=== PATIENT | female | born 1940 | race Caucasian/White ===

== ENCOUNTER 2018-04-07 10:52 | Inpatient (IN) | payer MEDICARE ==
[2018-04-07 11:30] LABS: ABS Basophils 0.1 10^3/ul (0-0.2); ABS Eosinophils 0 10^3/ul (0-0.6); ABS Lymphocytes 1.2 10^3/ul (1.0-4.8); ABS Neutrophils 7.9 10^3/ul (1.5-7.7); ABS Nucleated RBC 0 10^3/ul; Eosinophil % 0 % (0-6); Hematocrit 41 % (35-47); Hemoglobin 13.7 g/dl (12.0-16.0); Lymphocyte % 11.8 % (25-47); Mean Corpuscular HGB Conc 34 g/dl (31-36); Mean Corpuscular Hemoglobin 26 pg (27-31); Mean Corpuscular Volume 78 fL (80-97); Mean Platelet Volume 7.3 um3 (7.4-10.4); Nucleated Red Blood Cells % 0; Platelet Count 188 10^3/ul (150-450); Red Blood Count 5.26 10^6/ul (4.0-5.4); Red Cell Distribution Width 17 % (10.5-15); White Blood Count 10.1 10^3/ul (3.5-10.8)
[2018-04-07 11:46] LABS: EGFR Non-African American 64.2 (>60)
[2018-04-07] MEDS ORDERED: NS 0.9% 1000 ML* 1,000 ML IV ONE (12:07)
--- NOTE | 2018-04-07 12:11 | RAD ---
HISTORY: Weakness, failure to thrive COMPARISONS: None VIEWS: 1: frontal portable view of the chest at 11:30 AM FINDINGS: LINES AND TUBES: None. CARDIOMEDIASTINAL SILHOUETTE: The cardiomediastinal silhouette is normal for portable technique. PLEURA: The costophrenic angles are sharp. No pleural abnormalities are noted. LUNG PARENCHYMA: There is hyperinflation. ABDOMEN: The upper abdomen is clear. There is no subphrenic gas. BONES AND SOFT TISSUES: Degenerative changes are noted along the spine. IMPRESSION: HYPERINFLATION. NO ACTIVE CARDIOPULMONARY DISEASE.
[2018-04-07] MEDS ORDERED: PROCHLORPERAZINE INJ 5 MG/ML 2 ML VIAL IV PRN (14:13)
--- NOTE | 2018-04-07 14:55 | ED ---
Jesica Mancilla Elizabeth, scribed for Nima Mccord MD on 04/07/18 at 1115 . Complex/Multi-Sys Presentation - HPI Summary HPI Summary: This patient is a 78 year old F presenting to [facility] via EMS with a chief complaint of decreased appetite and weight loss, per EMS report. Symptoms aggravated by nothing. Symptoms alleviated by nothing. Patient reports that she was brought in because her son was concerned about her but she denies knowing what he was concerned about. Patient reports decreased oral intake. Patient denies inability to urinate, constipation, or shortness of breath. Patient denies any hx of medical problems. Patient lives at home with her and her son. 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 - History Of Current Complaint Time Seen by Provider: 04/07/18 11:01 Hx Obtained From: Patient, EMS Onset/Duration: Still Present Timing: Constant Severity Currently: Mild Severity Initially: Mild Aggravating Factor(s): nothing Alleviating Factor(s): nothing Associated Signs And Symptoms: Positive: Decreased Oral Intake. Negative: SOB - Allergies/Home Medications Allergies/Adverse Reactions: Allergies Allergy/AdvReac Type Severity Reaction Status Date / Time No Known Allergies Allergy Verified 04/07/18 11:07 Home Medications: Home Medications NK [No Home Medications Reported] 04/07/18 [History Confirmed 04/07/18] PMH/Surg Hx/FS Hx/Imm Hx Endocrine/Hematology History: Denies: Hx Diabetes Respiratory History: Denies: Hx Chronic Obstructive Pulmonary Disease (COPD) Opthamlomology History: Denies: Hx Legally Blind Infectious Disease History: No Infectious Disease History: Denies: Traveled Outside the [place] in Last 30 Days - Family History Known Family History: Positive: Unknown - family hx unable to be obtained from patient - Social History Alcohol Use: None Substance Use Type: Reports: None Smoking Status (MU): Former Smoker Review of Systems Negative: Shortness Of Breath Gastrointestinal: Other - decreased oral intake Negative: incontinence Negative: Headache All Other Systems Reviewed And Are Negative: Yes Physical Exam - Summary Physical Exam Summary: Appearance: The patient is well-nourished in no acute distress and in no acute pain. Skin: The skin is warm and dry and skin color reflects adequate perfusion. The skin tents. HEENT: The head is normocephalic and atraumatic. The pupils are equal and reactive. The conjunctivae are clear and without drainage. Nares are patent and without drainage. Mouth reveals dry membranes and the throat is without erythema and exudate. The external ears are intact. The ear canals are patent and without drainage. The tympanic membranes are intact. Neck: the neck is supple with full range of motion and non-tender. There are no carotid bruits. There is no neck vein distension. Respiratory: Chest is non-tender. Lungs are clear to auscultation and breath sounds are symmetrical and equal. Cardiovascular: Heart is regular rate and rhythm. There is no murmur or rub auscultated. There is no peripheral edema and pulses are symmetrical and equal. Abdomen: The abdomen is soft and non-tender. There are normal bowel sounds heard in all four quadrants and there is no organomegaly palpated. Musculoskeletal: There is no back tenderness noted. Extremities are non-tender with full range of motion. There is good capillary refill. There is no peripheral edema or calf tenderness elicited. Neurological: Patient is alert and oriented to person, place and time. The patient has symmetrical motor strength in all four extremities. Cranial nerves are grossly intact. Deep tendon reflexes are symmetrical and equal in all four extremities. Psychiatric: The patient has an appropriate affect and does not exhibit any anxiety or depression. Triage Information Reviewed: Yes Vital Signs On Initial Exam: Initial Vitals Temp Pulse Resp BP Pulse Ox 99.3 F 95 16 160/82 97 04/07/18 11:01 04/07/18 11:01 04/07/18 11:01 04/07/18 11:01 04/07/18 11:01 Vital Signs Reviewed: Yes Diagnostics - Vital Signs Vital Signs Temp Pulse Resp BP Pulse Ox 04/07/18 11:01 99.3 F 95 16 160/82 97 - Laboratory Lab Results: Lab Results 04/07/18 04/07/18 04/07/18 Range/Units 11:23 11:23 11:23 WBC 10.1 (3.5-10.8) 10^3/ul RBC 5.26 (4.0-5.4) 10^6/ul Hgb 13.7 (12.0-16.0) g/dl Hct 41 (35-47) % MCV 78 L (80-97) fL MCH 26 L (27-31) pg MCHC 34 (31-36) g/dl RDW 17 H (10.5-15) % Plt Count 188 (150-450) 10^3/ul MPV 7.3 L (7.4-10.4) um3 Neut % (Auto) 77.8 (38-83) % Lymph % (Auto) 11.8 L (25-47) % [place] % (Auto) 9.8 H (0-7) % Eos % (Auto) 0 (0-6) % Baso % (Auto) 0.6 (0-2) % Absolute Neuts (auto) 7.9 H (1.5-7.7) 10^3/ul Absolute Lymphs (auto) 1.2 (1.0-4.8) 10^3/ul Absolute Monos (auto) 1.0 H (0-0.8) 10^3/ul Absolute Eos (auto) 0 (0-0.6) 10^3/ul Absolute Basos (auto) 0.1 (0-0.2) 10^3/ul Absolute Nucleated RBC 0 10^3/ul Nucleated RBC % 0 Sodium 136 L (139-145) mmol/L Potassium 3.6 (3.5-5.0) mmol/L Chloride 105 (101-111) mmol/L Carbon Dioxide 25 (22-32) mmol/L Anion Gap 6 (2-11) mmol/L BUN 26 H (6-24) mg/dL Creatinine 0.86 (0.51-0.95) mg/dL Est GFR ( Amer) 82.5 (>60) Est GFR (Non-Af Amer) 64.2 (>60) BUN/Creatinine Ratio 30.2 H (8-20) Glucose 136 H (70-100) mg/dL Lactic Acid 1.0 (0.5-2.0) mmol/L Calcium 10.4 H (8.6-10.3) mg/dL Magnesium 2.2 (1.9-2.7) mg/dL Total Bilirubin 1.50 H (0.2-1.0) mg/dL AST 52 H (13-39) U/L ALT 21 (7-52) U/L Alkaline Phosphatase 100 (34-104) U/L Troponin I 0.02 (<0.04) ng/mL C-Reactive Protein 133.26 H (< 5.00) mg/L Total Protein 7.3 (6.4-8.9) g/dL Albumin 3.2 (3.2-5.2) g/dL Globulin 4.1 H (2-4) g/dL Albumin/Globulin Ratio 0.8 L (1-3) TSH 1.03 (0.34-5.60) mcIU/mL Result Diagrams: 04/07/18 11:23 04/07/18 11:23 Lab Statement: Any lab studies that have been ordered have been reviewed, and results considered in the medical decision making process. - Radiology CXR Xray Interpretation: No Acute Changes - IMPRESSION: HYPERINFLATION. NO ACTIVE CARDIOPULMONARY DISEASE. Dr. Mccord has reviewed this report Radiology Interpretation Completed By: Radiologist - EKG 11:14 Cardiac Rate: NL - at 76 BPM EKG Rhythm: Sinus Rhythm EKG Interpretation: NSR with PSVCs Re-Evaluation - Re-Evaluation 1st re-eval Re-Evaluation Time: 12:57 Change: Improved - Discussed course of treatment with patient and patient's family. Comment: Discussed course of tx with patient and patient's family Complex Multi-Symp Course/Dx Course Of Treatment: Ms. Davenport has been getting weaker and losing weight for many weeks. Today it got to the point that she couldn't get off the toilet and her son called EMS. She has no specific C/O but was clincally dehydrated and a bit cachectic. Her labs were reasonable with an elevated BUN/creat. I'm not sure what the diagnosis ultimately will be but she is unable to get up and walk out of the department. The hospitalist service is admitting her. - Diagnoses Provider Diagnoses: Weakness - Physician Notifications Discussed Care Of Patient With: Nora Justin Time Discussed With Above Provider: 13:15 Instructed by Provider To: Admit As Inpatient Discharge - Sign-Out/Discharge Documenting (check all that apply): Discharge/Admit/Transfer - Discharge Plan Condition: Stable Disposition: ADMITTED TO [facility] Referrals: No Primary Care Phys,NOPCP [Primary Care Provider] - - Billing Disposition and Condition Condition: STABLE Disposition: [facility] The documentation as recorded by the Jesica farley Elizabeth accurately reflects the service I personally performed and the decisions made by , Nima Mccord MD.
[2018-04-07] MEDS ORDERED: Iohexol 300* (CONTRAST) 10 ML SDV IV ONE (14:57)
--- NOTE | 2018-04-07 15:03 | RAD ---
HISTORY: Weakness, weight loss, poor appetite COMPARISONS: None TECHNIQUE: Multiple contiguous axial CT scans were obtained of the head without intravenous contrast. FINDINGS: HEMORRHAGE/INFARCT: There is no hemorrhage or acute infarct. MASSES/SHIFT: There is no mass or shift. EXTRA-AXIAL SPACES: There are no extra-axial fluid collections. SULCI AND VENTRICLES: The sulci and ventricles are normal in size and position for the patient's stated age. CEREBRUM: There is hypoattenuation of the periventricular and subcortical white matter. BRAINSTEM: There are no focal parenchymal abnormalities. CEREBELLUM: There are no focal parenchymal abnormalities. VESSELS: The vessels are grossly normal. PARANASAL SINUSES: The paranasal sinuses are clear. ORBITS: The orbits are unremarkable. BONES AND SOFT TISSUE: No bone or soft tissue abnormalities are noted. OTHER: None IMPRESSION: NO ACUTE INTRACRANIAL PATHOLOGY. CHRONIC SMALL VESSEL ISCHEMIC CHANGES.
[2018-04-07] MEDS: NS 0.9% 1000 ML* 1,000 ML IV SCH (16:31)
[2018-04-07] MEDS: Acetaminophen TAB* 325 MG PO PRN (16:31)
[2018-04-07] MEDS: cefTRIAXone(*) 1 GM in NS 0.9% 50 ML* 50 ML IVPB SCH (16:40)
--- NOTE | 2018-04-07 17:42 | HP ---
CC: Dr. Nuris Angulo. * HISTORY AND PHYSICAL: DATE OF ADMISSION: 04/07/18 TIME OF EVALUATION: 1:40 p.m. PRIMARY CARE PROVIDER: Dr. Nuris Angulo. CHIEF COMPLAINT: "She is weak" as per son. HISTORY OF PRESENT ILLNESS: Mrs. Davenport is a 78-year-old lady with limited contact with the health system who was brought in to the emergency room by EMS due to progressive weakness. The patient states she does not want to be admitted and is very reluctant to give me information. So, most of the history is obtained from her son, Josh Davenport, who is present at bedside. The son states that the patient has had progressive weakness and weight loss for years, he is unable to pinpoint for how long, but he states that over the past year "things got really worse." He estimates that his mother has lost approximately 100 pounds unintentionally and she has become progressively weaker to the point that today he woke up around 6:30 and she was in the bathroom. An hour later, she was still there sitting on the toilet and could not stand up, so he called EMS who brought her to the emergency room for further evaluation. The patient denies chest pain, nausea, vomiting, diarrhea, urinary complaints, although she later on reported that she does have some difficulty urinating. 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 Initially, my impression was that the patient had not tried to walk, but later on the emergency room nurse clarified that they had tried to walk her around and she was unable to stand up and the nurse felt that was very risky to try to do it again as she felt the patient was at very high risk for falls. When asked how she would get out of the emergency room, the patient stated that she was planning to walk out, but when reminded that she had not been able to walk earlier, she would just repeat "I will find a way." Even after her son told her that he would not be taking her home, she continued to insist that she did not want to be admitted, but could not verbalize plan to get out of the hospital and return home. The patient states that she never had the colonoscopy. Last mammogram was more than 10 years ago. PAST MEDICAL HISTORY: None, but the patient has limited contact with the health system, with last visit to her primary care provider more than 10 years ago. MEDICATION LIST: None. ALLERGIES: No known drug allergies. FAMILY HISTORY: Her father of a lung cancer and he was a heavy smoker. Her mother of heart disease and she was also a heavy smoker. Her son is not aware of any other diseases in the family. SOCIAL HISTORY: She quit smoking more than 40 years ago when she had her last baby. No alcohol intake, sometimes some wine occasionally but the son states that not even that. Surrogate decision maker is her son, Josh Davenport; phone number is [phone]. REVIEW OF SYSTEMS: Limited due to the fact that the patient is uncooperative, but all the pertinent negative and positive findings are in the HPI. PHYSICAL EXAMINATION GENERAL: The patient is an elderly lady with disheveled appearance and she appears to have lost significant amount of weight. She is lying in the ED stretch, in no acute distress. VITAL SIGNS: Temperature 98.0, heart rate is 91, respiratory rate is 20, oxygen saturation 96% on room air, blood pressure is 172/96. HEENT: Pupils are equal. Moist mucous membranes. CHEST: Breath sounds present bilaterally. No added sounds. CVS: Normal S1 and S2. Regular rate and rhythm. Tachycardic. ABDOMEN: Soft, nontender, and nondistended. Bowel sounds present. EXTREMITIES: There is trace bilateral lower extremity edema. NEUROLOGIC: She is alert, awake, and oriented x3. Able to move all 4 extremities. SKIN: The patient has telangiectasias on her face, hands. LABORATORY AND IMAGING DATA: The patient had a CBC that showed WBC of 10, hemoglobin of 13.7, hematocrit of 41 with MCV of 78, MCH of 26, platelet count of 188 with 77% neutrophils. Chemistry showed a sodium of 136, potassium 3.6, chloride of 105, bicarbonate 25, BUN of 26, creatinine of 0.86, glucose 136, lactic acid of 1. Calcium is 10.4, magnesium is 2.2. Total bilirubin is 1.5, AST is 52, ALT is 21. Troponin is 0.02. CRP is 133.2. TSH is 1.03. Chest x-ray showed hyperinflation, but no active cardiopulmonary disease. EKG showed sinus rhythm at 76 beats per minute with supraventricular bigeminy. No prior EKGs to compare. ASSESSMENT AND PLAN: Mrs. Davenport is a 78-year-old lady with no significant past medical history, but limited contact with the health system, who was brought into the emergency room by EMS due to progressive weakness and weight loss. 1. Weakness/weight loss. I suspect the patient may have an underlying malignancy considering her elevated CRP in clinical presentation. Unfortunately , my physical examination was limited due to the patient's lack of cooperation. I am going to check CT of the brain, chest, abdomen, and pelvis to look for any primary lesions. She will be seen by Physical Therapy. I am also going to check a serum and urine protein electrophoresis considering her mild hypercalcemia. 2. Capacity. It is my opinion that the patient lacks capacity to sign out against medical advice at this time as she appears to have some memory issues and was not able to verbalize a safe discharge plan. When asked how she should leave the hospital since she is unable to walk, the patient went into nonsensical reasoning that she could not walk because she had been in the emergency room for a long time. When I brought to her attention that she would sleep at least 8 hours lying in her bed and she should be able to get up in the morning, she just looked at me and was not able to give me any other answer. When I asked if she thought this was the safe discharge, she would just tell me "leave me alone." Since she is unable to show me that she has insight into her condition and she has a safe plan in place, I believe she does not have the capacity to leave at this time and mental health evaluation was also requested. 3. DVT prophylaxis. The patient has a score of 3 on a DVT Prophylaxis Risk Assessment Guide and she will be started on subcutaneous heparin. 4. Code status is full. TIME SPENT: Approximately 50 minutes was spent with the patient and family interview, medical records review, physical examination to complete this admission, more than half of this time was spent [id number] with the patient and coordination of care. [id number]/CPS #: [id number] PERRY
--- NOTE | 2018-04-07 17:56 | RAD ---
HISTORY: Weakness, cachexia, COMPARISONS: None TECHNIQUE: Multiple contiguous axial CT scans were obtained of the chest, abdomen, and pelvis after the administration of intravenous contrast. Coronal and sagittal multiplanar reformations are submitted for review.. Oral contrast was administered. Delayed images were obtained through the abdomen and pelvis. FINDINGS: CHEST NECK AND THYROID: There is a 1.1 cm left thyroid nodule CHEST WALL: There is no lower cervical, axillary, or supraclavicular lymphadenopathy by size criteria. HEART AND PERICARDIUM: The heart is unremarkable. AORTA AND PULMONARY VASCULATURE: There is calcification of the thoracic aorta. The pulmonary vasculature is unremarkable. MEDIASTINUM: There is no mediastinal lymphadenopathy by size criteria. SEEMA: There is no hilar lymphadenopathy by size criteria. AIRWAY AND ESOPHAGUS: The airway is unremarkable, without endobronchial filling defect. The esophagus is grossly normal. LUNG PARENCHYMA: The lungs are clear. PLEURA: No pleural abnormalities are noted. BONES AND SOFT TISSUES: Degenerative changes noted of the spine. ABDOMEN/PELVIS: LIVER: There are small low-attenuation lesions of the liver that are too small to definitively characterize. BILE DUCTS: There is no intrahepatic or extrahepatic biliary dilatation. GALLBLADDER: Gallstones are noted. There is a phrygian cap. PANCREAS: The pancreas is normal, without mass or ductal dilatation. SPLEEN: Normal in size and appearance. UPPER GI TRACT: Evaluation of the gastrointestinal tract is limited by incomplete gastric distention. The upper GI tract is unremarkable. SMALL BOWEL & MESENTERY: The small bowel is normal in contour, course, and caliber. There is no obstruction or dilatation. COLON: The colon is normal in contour, course, caliber. There is no pericolonic inflammatory change. ADRENALS: Normal bilaterally. KIDNEYS: There is moderate left and moderate to severe right hydronephrosis and hydroureter. BLADDER: The bladder is enlarged with multiple diverticula. There is diffuse wall thickening. PELVIC ORGANS: The uterus and adnexa are grossly normal for technique. AORTA: There is calcific atherosclerotic disease of the abdominal aorta and its branches, without aneurysmal dilatation IVC: Unremarkable LYMPH NODES: There is no lymphadenopathy by size criteria. ABDOMINAL WALL: There is no evidence for abdominal wall hernia. BONES AND SOFT TISSUES: Degenerative changes are noted of the spine OTHER: None IMPRESSION: 1. THERE IS BILATERAL HYDRONEPHROSIS WITH AN ENLARGED THICK-WALLED BLADDER WITH MULTIPLE DIVERTICULA. THIS MAY INDICATE A NEUROGENIC BLADDER VERSUS BLADDER OUTLET OBSTRUCTION. 2. ATHEROSCLEROSIS. 3. CHOLELITHIASIS. 4. THERE ARE LOW-ATTENUATION HEPATIC PARENCHYMAL LESIONS. THESE ARE TOO SMALL TO DEFINITIVELY CHARACTERIZE BUT STATISTICALLY MOST LIKELY REPRESENT SMALL CYSTS VERSUS HEMANGIOMAS. 5. 1.1 CM THYROID NODULE. 6. NO ACUTE CT PATHOLOGY OF THE CHEST.
--- NOTE | 2018-04-07 20:37 | PN ---
Progress Note - Progress Note Date of Service: 04/07/18 Note: Paged for urinary retention. Bladder scan >[address] scan shows b/l hydro and question of neurogenic bladder vs obstruction. Will place ram catheter based on these findings.
[2018-04-07] MEDS: Heparin VIAL(*) 5000 UNITS/ML VIAL (FIVE THOUSAND) SUBCUT SCH (21:25)
[2018-04-08] MEDS: NS 0.9% 1000 ML* 1,000 ML IV SCH ×2 (03:41→14:10)
[2018-04-08] MEDS: Heparin VIAL(*) 5000 UNITS/ML VIAL (FIVE THOUSAND) SUBCUT SCH ×3 (05:06→21:22)
[2018-04-08 07:16] LABS: Urine Appearance Turbid; Urine Blood 3+ (Negative); Urine Color Yellow; Urine Ketones Trace (Negative); Urine Protein 2+(100 mg/dL) (Negative); Urine Specific Gravity 1.029 (1.010-1.030); Urine Urobilinogen Negative (Negative)
[2018-04-08] MEDS: Acetaminophen TAB* 325 MG PO PRN (08:07)
--- NOTE | 2018-04-08 14:19 | CONSULT ---
Consult Consult: Consult for Medical Decision Making Capacity: S: Psychiatry is asked to evaluate capacity in this 78 y.o. , white female with not much documented medical or psychiatric history, who is currently admitted to the Hospitalist service secondary to progressive muscle weakness and concerns for cognitive impairment, who is refusing medically indicated evaluation and treatment related to her decrease in health and functioning. I spoke with the admitting clinician, Dr. Nora Singer, who reported that the patient was brought to the hospital by her son, who called 911 after not being able to lift his mother off the commode in the home that they share in [place], [place]. He further reported to ED staff that she had experienced a rapid weight loss over the past year of what he estimated to be 100 lbs. The patient was dismissive of her son's concerns and demanding discharge back home, insisting that she can take care of herself. ED staff attempted to have the patient ambulate but she was unable to do so without assistance. The patient could not give a rationale safety plan to mitigate these concerns and she was admitted. The indicated treatment is workup for the etiology of weight loss and there is some concern for possible malignancy. On exam the patient is cooperative but remains dismissive. She is unaware of what the primary team is suggesting and still insists that she be sent home, where she is the main caregiver for her aging, wheelchair bound . When asked about potential risks of refusing further workup and treatment, she cannot name any. Separately in the hallway I spoke with her daughter, Nivia Rios, who reports that the patient's memory is decreasing, as evidenced by her asking the same questions repetitively and not registering the answers in a meaningful way. The patient's brother, Kendall Mittal, corroborates this account. O: the patient is an extremely slender, aging white female who is laying upward in a bed, dressed in hospital gown; fair grooming; polite but somewhat annoyed; irritable affect; denies SI or HI; poor insight and impaired judgment; scores 22 /30 on MMSE, missing points for day, facility, county, immediate and delayed recall A/P: Capacity: the patient lacks capacity to refuse further hospitalization. She is unable to articulate/apprehend the risks of declining medically indicated treatment and she shows significant reductions in her cognitive functioning, as corroborated by multiple family accounts. Psychiatry is singing off. Please reconsult in the event of any significant changes in the patient's presentation.
[2018-04-08] MEDS: cefTRIAXone(*) 1 GM in NS 0.9% 50 ML* 50 ML IVPB SCH (15:39)
--- NOTE | 2018-04-08 17:24 | PN ---
Subjective Date of Service: 04/08/18 Interval History: Pt stated that she has lost 20 lbs in 5 yrs, but her daughter noted 40 lbs in 6 months. Pt denies problems with urination, or BM's. Denies abd pain, recent fevers. Not sure what happened when she was evaluated by PT today. Pt is seen with daughter and son in the room Objective Active Medications: Acetaminophen (Tylenol Tab*) 650 mg PO Q6H PRN PRN Reason: pain/fever Last Admin: 04/08/18 08:07 Dose: 650 mg Heparin Sodium (Porcine) (Heparin Vial(*)) 5,000 units SUBCUT Q8HR [facility] Last Admin: 04/08/18 14:10 Dose: 5,000 units Sodium Chloride (Ns 0.9% 1000 Ml*) 1,000 mls @ 100 mls/hr IV .ENTER RATE [facility] Last Admin: 04/08/18 14:10 Dose: 100 mls/hr Ceftriaxone Sodium 1 gm/ (Sodium Chloride) 50 mls @ 200 mls/hr IVPB Q24H [facility] Last Admin: 04/08/18 15:39 Dose: 200 mls/hr Prochlorperazine Edisylate (Compazine Inj*) 5 mg IV Q6H PRN PRN Reason: NAUSEA/VOMITING Vital Signs - 8 hr 04/08/18 04/08/18 10:15 11:17 Temperature 98.8 F 99.5 F Pulse Rate 63 Respiratory 20 Rate Blood Pressure 102/47 (mmHg) O2 Sat by Pulse 97 Oximetry Oxygen Devices in Use Now: None Appearance: 78 yo F in nAD, AAOx3, poor historian Eyes: No Scleral Icterus, PERRLA Ears/Nose/Mouth/Throat: NL Teeth, Lips, Gums, Mucous Membranes Moist Neck: NL Appearance and Movements; NL JVP, Trachea Midline Respiratory: Symmetrical Chest Expansion and Respiratory Effort, Clear to Auscultation Cardiovascular: NL Sounds; No Murmurs; No JVD, No Edema Abdominal: NL Sounds; No Tenderness; No Distention, No Hepatosplenomegaly Lymphatic: No Cervical Adenopathy Extremities: No Edema, No Clubbing, Cyanosis Skin: No Rash or Ulcers, No Nodules or Sclerosis Neurological: Alert and Oriented x 3, - - R hip flexion weaker than left -as per pt related to "bad hip" Result Diagrams: 04/07/18 11:23 05/20/18 11:23 Additional Lab and Data: Lab Results 04/07/18 04/07/18 04/07/18 Range/Units 11:23 11:23 11:23 WBC 10.1 (3.5-10.8) 10^3/ul RBC 5.26 (4.0-5.4) 10^6/ul Hgb 13.7 (12.0-16.0) g/dl Hct 41 (35-47) % MCV 78 L (80-97) fL MCH 26 L (27-31) pg MCHC 34 (31-36) g/dl RDW 17 H (10.5-15) % Plt Count 188 (150-450) 10^3/ul MPV 7.3 L (7.4-10.4) um3 Neut % (Auto) 77.8 (38-83) % Lymph % (Auto) 11.8 L (25-47) % [place] % (Auto) 9.8 H (0-7) % Eos % (Auto) 0 (0-6) % Baso % (Auto) 0.6 (0-2) % Absolute Neuts (auto) 7.9 H (1.5-7.7) 10^3/ul Absolute Lymphs (auto) 1.2 (1.0-4.8) 10^3/ul Absolute Monos (auto) 1.0 H (0-0.8) 10^3/ul Absolute Eos (auto) 0 (0-0.6) 10^3/ul Absolute Basos (auto) 0.1 (0-0.2) 10^3/ul Absolute Nucleated RBC 0 10^3/ul Nucleated RBC % 0 Sodium 136 L (139-145) mmol/L Potassium 3.6 (3.5-5.0) mmol/L Chloride 105 (101-111) mmol/L Carbon Dioxide 25 (22-32) mmol/L Anion Gap 6 (2-11) mmol/L BUN 26 H (6-24) mg/dL Creatinine 0.86 (0.51-0.95) mg/dL Est GFR ( Amer) 82.5 (>60) Est GFR (Non-Af Amer) 64.2 (>60) BUN/Creatinine Ratio 30.2 H (8-20) Glucose 136 H (70-100) mg/dL Lactic Acid 1.0 (0.5-2.0) mmol/L Calcium 10.4 H (8.6-10.3) mg/dL Magnesium 2.2 (1.9-2.7) mg/dL Total Bilirubin 1.50 H (0.2-1.0) mg/dL AST 52 H (13-39) U/L ALT 21 (7-52) U/L Alkaline Phosphatase 100 (34-104) U/L Troponin I 0.02 (<0.04) ng/mL C-Reactive Protein 133.26 H (< 5.00) mg/L Total Protein 7.3 (6.4-8.9) g/dL Albumin 3.2 (3.2-5.2) g/dL Globulin 4.1 H (2-4) g/dL Albumin/Globulin Ratio 0.8 L (1-3) TSH 1.03 (0.34-5.60) mcIU/mL Microbiology and Other Data: Microbiology 04/07/18 16:11 Aerobic Blood Culture - Preliminary Blood Venous No Growth Day 1 Anaerobic Blood Culture - Preliminary No Growth Day 1 04/07/18 16:11 Aerobic Blood Culture - Preliminary Blood Venous No Growth Day 1 Anaerobic Blood Culture - Preliminary No Growth Day 1 Assess/Plan/Problems-Billing Assessment: 78 yo F who has had no medical care for over 10 yrs presents with generalized weakness, problems with memory and wt loss. found to have urinary retention/UTI/hydronephrosis - Patient Problems (1) Acute urinary retention Comment: with subsequent b/l hydronephrosis.? urethral stricture, or UTI related. Relieved with Sharma cath. Informed pt that due to significant amount of urine retained , cath has to stay in place for approx 4 weeks prior to outpatient urology evaluation (2) UTI (urinary tract infection) Comment: cont Ceftriaxone. U. cx pending (3) Hypercalcemia Comment: as well as microcytosis could be due to malignancy. No abn noted on CT apart for 1.2 cm thyroid nodule. SPEP pending, stool guaiac ordered. (4) Dehydration Comment: euvolemic today. will d/c IVF (5) DVT prophylaxis Comment: HSQ Status and Disposition: Inpatient. As per psychiatry eval pt lacks capacity to refuse STR. PT/OT eval ongoing
[2018-04-09] MEDS: Heparin VIAL(*) 5000 UNITS/ML VIAL (FIVE THOUSAND) SUBCUT SCH ×3 (04:59→21:37)
[2018-04-09 06:17] LABS: ABS Basophils 0 10^3/ul (0-0.2); ABS Eosinophils 0 10^3/ul (0-0.6); ABS Lymphocytes 1.4 10^3/ul (1.0-4.8); ABS Monocytes 0.6 10^3/ul (0-0.8); ABS Nucleated RBC 0 10^3/ul; Eosinophil % 0.1 % (0-6); Hematocrit 32 % (35-47); Hemoglobin 10.7 g/dl (12.0-16.0); Lymphocyte % 23.9 % (25-47); Mean Corpuscular HGB Conc 33 g/dl (31-36); Mean Corpuscular Hemoglobin 26 pg (27-31); Mean Corpuscular Volume 78 fL (80-97); Mean Platelet Volume 7.5 um3 (7.4-10.4); Nucleated Red Blood Cells % 0; Platelet Count 140 10^3/ul (150-450); Red Blood Count 4.15 10^6/ul (4.0-5.4); Red Cell Distribution Width 17 % (10.5-15); White Blood Count 6.1 10^3/ul (3.5-10.8)
[2018-04-09 06:37] LABS: EGFR Non-African American 114.6 (>60)
[2018-04-09] MEDS ORDERED: Potassium Chlor TAB* 20 MEQ TAB.ER PO ONE (14:14)
[2018-04-09] MEDS: cefTRIAXone(*) 1 GM in NS 0.9% 50 ML* 50 ML IVPB SCH (15:35)
--- NOTE | 2018-04-09 18:24 | PN ---
Subjective Date of Service: 04/09/18 Interval History: Heart rate better controlled No pain no nausea Objective Active Medications: Acetaminophen (Tylenol Tab*) 650 mg PO Q6H PRN PRN Reason: pain/fever Last Admin: 04/08/18 08:07 Dose: 650 mg Heparin Sodium (Porcine) (Heparin Vial(*)) 5,000 units SUBCUT Q8HR [facility] Last Admin: 04/09/18 13:26 Dose: 5,000 units Ceftriaxone Sodium 1 gm/ (Sodium Chloride) 50 mls @ 200 mls/hr IVPB Q24H [facility] Last Admin: 04/09/18 15:35 Dose: 200 mls/hr Prochlorperazine Edisylate (Compazine Inj*) 5 mg IV Q6H PRN PRN Reason: NAUSEA/VOMITING Vital Signs - 8 hr 04/09/18 04/09/18 12:41 15:25 Temperature 98.1 F 97.2 F Pulse Rate 70 78 Respiratory 16 28 Rate Blood Pressure 122/46 121/56 (mmHg) O2 Sat by Pulse 99 100 Oximetry Oxygen Devices in Use Now: None Appearance: NAD Eyes: No Scleral Icterus, PERRLA Ears/Nose/Mouth/Throat: NL Teeth, Lips, Gums, Mucous Membranes Moist Neck: NL Appearance and Movements; NL JVP, Trachea Midline Respiratory: Symmetrical Chest Expansion and Respiratory Effort, Clear to Auscultation Cardiovascular: - - IRIR, controlled rate Abdominal: NL Sounds; No Tenderness; No Distention, No Hepatosplenomegaly Lymphatic: No Cervical Adenopathy Extremities: No Edema Skin: No Rash or Ulcers Neurological: Alert and Oriented x 3, - - tangential but orientated Result Diagrams: 04/09/18 05:57 04/09/18 05:57 Additional Lab and Data: Lab Results 04/07/18 04/07/18 04/07/18 Range/Units 11:23 11:23 11:23 WBC 10.1 (3.5-10.8) 10^3/ul RBC 5.26 (4.0-5.4) 10^6/ul Hgb 13.7 (12.0-16.0) g/dl Hct 41 (35-47) % MCV 78 L (80-97) fL MCH 26 L (27-31) pg MCHC 34 (31-36) g/dl RDW 17 H (10.5-15) % Plt Count 188 (150-450) 10^3/ul MPV 7.3 L (7.4-10.4) um3 Neut % (Auto) 77.8 (38-83) % Lymph % (Auto) 11.8 L (25-47) % [place] % (Auto) 9.8 H (0-7) % Eos % (Auto) 0 (0-6) % Baso % (Auto) 0.6 (0-2) % Absolute Neuts (auto) 7.9 H (1.5-7.7) 10^3/ul Absolute Lymphs (auto) 1.2 (1.0-4.8) 10^3/ul Absolute Monos (auto) 1.0 H (0-0.8) 10^3/ul Absolute Eos (auto) 0 (0-0.6) 10^3/ul Absolute Basos (auto) 0.1 (0-0.2) 10^3/ul Absolute Nucleated RBC 0 10^3/ul Nucleated RBC % 0 Sodium 136 L (139-145) mmol/L Potassium 3.6 (3.5-5.0) mmol/L Chloride 105 (101-111) mmol/L Carbon Dioxide 25 (22-32) mmol/L Anion Gap 6 (2-11) mmol/L BUN 26 H (6-24) mg/dL Creatinine 0.86 (0.51-0.95) mg/dL Est GFR ( Amer) 82.5 (>60) Est GFR (Non-Af Amer) 64.2 (>60) BUN/Creatinine Ratio 30.2 H (8-20) Glucose 136 H (70-100) mg/dL Lactic Acid 1.0 (0.5-2.0) mmol/L Calcium 10.4 H (8.6-10.3) mg/dL Magnesium 2.2 (1.9-2.7) mg/dL Total Bilirubin 1.50 H (0.2-1.0) mg/dL AST 52 H (13-39) U/L ALT 21 (7-52) U/L Alkaline Phosphatase 100 (34-104) U/L Troponin I 0.02 (<0.04) ng/mL C-Reactive Protein 133.26 H (< 5.00) mg/L Total Protein 7.3 (6.4-8.9) g/dL Albumin 3.2 (3.2-5.2) g/dL Globulin 4.1 H (2-4) g/dL Albumin/Globulin Ratio 0.8 L (1-3) TSH 1.03 (0.34-5.60) mcIU/mL Microbiology and Other Data: Microbiology 04/07/18 16:11 Aerobic Blood Culture - Preliminary Blood Venous No Growth Day 1 Anaerobic Blood Culture - Preliminary No Growth Day 1 04/07/18 16:11 Aerobic Blood Culture - Preliminary Blood Venous No Growth Day 1 Anaerobic Blood Culture - Preliminary No Growth Day 1 Assess/Plan/Problems-Billing Assessment: 78 yo F who has had no medical care for over 10 yrs presents with generalized weakness, problems with memory and wt loss found to have urinary retention/UTI/hydronephrosis - Patient Problems (1) Acute urinary retention Comment: with subsequent b/l hydronephrosis. suspect UTI related. Relieved with Sharma cath which she will need in place for approx 4 weeks prior to outpatient urology evaluation (2) Hypercalcemia Comment: as well as microcytosis could be due to malignancy. No abn noted on CT apart for 1.2 cm thyroid nodule. SPEP wnl stool guaiac still pending (3) UTI (urinary tract infection) Comment: cont Ceftriaxone. change to PO when sensitivites result (4) DVT prophylaxis Comment: HSQ Status and Disposition: Inpatient. As per psychiatry eval pt lacks capacity to refuse STR. PT/OT eval ongoing
[2018-04-09] MEDS: Acetaminophen TAB* 325 MG PO PRN (21:36)
[2018-04-10] MEDS: Heparin VIAL(*) 5000 UNITS/ML VIAL (FIVE THOUSAND) SUBCUT SCH ×2 (05:47→13:25)
--- NOTE | 2018-04-10 15:45 | DS ---
CC: Jenniffer Rondon * DISCHARGE SUMMARY: DATE OF ADMISSION: 04/07/18 DATE OF DISCHARGE: 04/10/18 PRIMARY CARE PROVIDER: None. DISPOSITION ON DISCHARGE: [facility]. DIET ON DISCHARGE: Regular, unrestricted. MEDICATIONS ON DISCHARGE: Tylenol 650 mg as needed for pain or fever. PRIMARY DIAGNOSIS: Urinary retention. SECONDARY DIAGNOSES: Include weakness, hypokalemia, dementia. PERTINENT LABORATORY DATA: Potassium nadired at 2.9 on 04/07/18, hemoglobin 10.7. Microbiology positive for E. coli only 10,000 colony count. PERTINENT IMAGING STUDIES: CT abdomen and pelvis, impression: Bilateral hydronephrosis with enlarged thickened wall bladder with multiple diverticula. This may indicate a neurogenic bladder versus bladder outlet obstruction. Atherosclerosis. Cholelithiasis. There was low attenuation of hepatic parenchymal lesions. These are too small to definitively characterize specifically, most likely represent small cysts versus hemangiomas. 1.1 cm thyroid nodule. HISTORY OF PRESENT ILLNESS AND HOSPITAL COURSE: A 78-year-old female with past medical history as outlined in the history of present illness on the day of admission, presented to the hospital feeling weak, found to have urinary retention with associated bilateral hydronephrosis. She had a Sharma catheter placed, was noted to be retaining about a liter of urine. Sharma catheter will be left in place and she will require a followup with Urology in approximately 1 month. Her urine grew less than 10,000 E. coli, not suspected to be the etiology of urinary retention. She did receive ceftriaxone prior to results finalizing. She improved during the course of her hospital stay. However, it was noted that she had lost at least 15 to 20 pounds over the last several months unintentionally, however, in the setting of not eating as per her family. The patient wanted to return to home which was not thought to be safe. She was seen in conjunction with our psychiatry service. Both their service and 2 practitioners on our service agree patient did not have the capacity to participate in placement and to decline further hospitalization. She was unable to articulate the risks associated with her condition. Family members agreed with this decision and identified [facility] as the ideal place for her recovery at this time. There are no other complications during the course of the hospital stay. FOLLOWUP: Follow up please: 1. Check BMP in 2 days to monitor for stability of potassium. The patient did have several loose stools during the course of the hospital stay likely contributed to her hypokalemia in conjunction with her decreased appetite. 2. Please ensure followup with Urology in approximately 1 month for removal of Sharma and reimaging of system. 3. No other specific labs or vitals need followup. Reason for return to the hospital including but not limited to recurrent or worsening symptoms, fevers, chills, night sweats, decreased urinary output, chest pain, shortness of breath, nausea, vomiting, lightheadedness or loss of consciousness should be considered. TIME SPENT: Greater than 45 minutes was spent on discharging the patient, greater than half the time spent face to face with the patient. [id number]/[facility] #: [id number] PERRY
[2018-04-10 15:51] VITALS: BP 118/51
== END 2018-04-10 17:15 | DRG 694 ==
LOC: ED 10:52 → MEDTELE 14:10
PROVIDERS: ADMIT Internal Medicine; ATTEND Internal Medicine
DX: N13.39 Other hydronephrosis (principal); N39.0 Urinary tract infection, site not specified; F03.90 Unspecified dementia, unspecified severity, without behavioral disturbance, psychotic disturbance, mood disturbance, and anxiety; B96.20 Unspecified Escherichia coli [E. coli] as the cause of diseases classified elsewhere; R33.9 Retention of urine, unspecified; E83.52 Hypercalcemia; R53.1 Weakness; E87.6 Hypokalemia; R63.4 Abnormal weight loss; Z80.1 Family history of malignant neoplasm of trachea, bronchus and lung; Z82.49 Family history of ischemic heart disease and other diseases of the circulatory system; Z81.2 Family history of tobacco abuse and dependence; Z87.891 Personal history of nicotine dependence; Z68.21 Body mass index [BMI] 21.0-21.9, adult
CPT/HCPCS: 36415; 70450; 71045; 71260; 74177; 80053; 80074; 81003; 81015; 82272; 83605; 83735; 84155; 84156; 84165; 84166; 84443; 84484; 85025; 86140; 86703; 87040; 87077; 87086; 87186; 93005; 99284; A9270-GY; G8978-GP-CL; G8979-GP-CI; G8987-GO-CK; G8988-GO-CI; G8989-GO-CI; J0696; J1644; Q9967

== ENCOUNTER 2020-12-16 15:16 | Inpatient (IN) ==
[2020-12-16] MEDS ORDERED: NS 0.9% 1000 ml BAG 1,000 ML IV ONE ×2 (15:37→19:51)
[2020-12-16] MEDS ORDERED: Ondansetron 4 mg VIAL 2 MG/ML 2 ml VIAL ONE (16:26)
[2020-12-16] MEDS ORDERED: Ondansetron 4 mg VIAL 2 MG/ML 2 ml VIAL IV ONE (16:26)
[2020-12-16 16:28] LABS: ABS Basophils 0.1 10^3/ul (0-0.2); ABS Eosinophils 0.1 10^3/ul (0-0.6); ABS Lymphocytes 1.3 10^3/ul (1.0-4.8); ABS Monocytes 0.6 10^3/ul (0-0.8); ABS Neutrophils 11.5 10^3/ul (1.5-7.7); Eosinophil % 0.4 %; Hematocrit 34 % (35-47); Hemoglobin 11.4 g/dL (12.0-16.0); Lymphocyte % 9.5 %; Mean Corpuscular HGB Conc 34 g/dL (31-36); Mean Corpuscular Hemoglobin 29 pg (27-31); Mean Corpuscular Volume 87 fL (80-97); Mean Platelet Volume 8.2 fL (7.4-10.4); Platelet Count 217 10^3/uL (150-450); Red Blood Count 3.88 10^6 /uL (3.70-4.87); Red Cell Distribution Width 14 % (10-15); White Blood Count 13.5 10^3/uL (3.5-10.8)
[2020-12-16 16:39] LABS: Activated Partial Thrombo Time 31.1 seconds (26.0-38.0); INR 1.05 (0.82-1.09)
[2020-12-16 16:40] LABS: Troponin I 0.01 ng/mL (<0.03)
[2020-12-16 16:41] LABS: ALT 80 U/L (7-52); Albumin 3.8 g/dL (3.2-5.2); Albumin/Globulin Ratio 1.1 (1-3); Alkaline Phosphatase 133 U/L (34-104); BUN/Creatinine Ratio 16.4 (8-20); Blood Urea Nitrogen 50 mg/dL (6-24); C Reactive Protein 4.44 mg/L (<8.01); CO2 Carbon Dioxide 20 mmol/L (22-32); Calcium 9.7 mg/dL (8.6-10.3); Chloride 105 mmol/L (101-111); EGFR Non-African American 14.9 (>60); Globulin 3.5 g/dL (2-4); Glucose 111 mg/dL (70-100); Sodium 137 mmol/L (135-145); Total Protein 7.3 g/dL (6.4-8.9)
[2020-12-16 16:53] LABS: Urine Appearance Cloudy; Urine Bilirubin Negative (Negative); Urine Blood 3+ (Negative); Urine Color Yellow; Urine Glucose 1+(50 mg/dL) (Negative); Urine Ketones Negative (Negative); Urine Nitrite Negative (Negative); Urine Protein 2+(100 mg/dL) (Negative); Urine Specific Gravity 1.011 (1.010-1.030); Urine Urobilinogen Negative (Negative)
[2020-12-16 17:02] LABS: Urine Bacteria 1+ (Absent); Urine Red Blood Cell 3+(>10/hpf) (Absent); Urine Squamous Epithelial Cell Present (Absent); Urine White Blood Cell 3+(>20/hpf) (Absent)
[2020-12-16 17:07] LABS: Anion Gap 12 mmol/L (2-11)
[2020-12-16] MEDS ORDERED: cefTRIAXone 1 gm/50 mL NS BAG 1 GM/50 ML BAG IV ONE (17:26)
[2020-12-16 18:30] LABS: Lipase 30052 U/L (11.0-82.0)
[2020-12-16] MEDS ORDERED: fentaNYL 100 mcg/2 ml 50 MCG/ML VIAL IV SLOW PU PRN (20:35)
[2020-12-16] MEDS ORDERED: Ondansetron 4 mg VIAL 2 MG/ML 2 ml VIAL IV PRN (20:56)
[2020-12-16] MEDS ORDERED: cefTRIAXone 2 GM ADDV.VIAL 2 GM in NS 0.9% 100 ml BAG 100 ML IV SCH (21:00)
[2020-12-16] MEDS ORDERED: Enoxaparin 30 MG/0.3 ML SYR SUBCUT SCH (21:00)
[2020-12-16] MEDS ORDERED: HYDROmorphone 0.5 MG/0.5 ML SYRINGE IV PRN (21:24)
[2020-12-16] MEDS: metroNIDAZOLE IV 500 MG/100ML 500 MG/100 ML BAG IVPB SCH (23:26)
[2020-12-17] MEDS: Lactated Ringers 1000 ml BAG 1,000 ML IV SCH ×2 (02:38→15:35)
[2020-12-17] MEDS: metroNIDAZOLE IV 500 MG/100ML 500 MG/100 ML BAG IVPB SCH ×3 (05:15→21:28)
[2020-12-17 09:28] LABS: ABS Lymphocytes 1.9 10^3/ul (1.0-4.8); ABS Monocytes 0.8 10^3/ul (0-0.8); ABS Neutrophils 11.9 10^3/ul (1.5-7.7); Eosinophil % 0.2 %; Hematocrit 30 % (35-47); Hemoglobin 10.1 g/dL (12.0-16.0); Mean Corpuscular HGB Conc 34 g/dL (31-36); Mean Corpuscular Hemoglobin 29 pg (27-31); Mean Corpuscular Volume 86 fL (80-97); Mean Platelet Volume 7.4 fL (7.4-10.4); Platelet Count 167 10^3/uL (150-450); Red Blood Count 3.43 10^6 /uL (3.70-4.87); Red Cell Distribution Width 14 % (10-15); White Blood Count 14.6 10^3/uL (3.5-10.8)
[2020-12-17 09:45] LABS: Albumin 3.4 g/dL (3.2-5.2); Albumin/Globulin Ratio 1.1 (1-3); BUN/Creatinine Ratio 17.3 (8-20); Calcium 9.4 mg/dL (8.6-10.3); EGFR Non-African American 18.2 (>60); Globulin 3.1 g/dL (2-4); Indirect Bilirubin 0.7 mg/dL (0.3-1.0); Potassium 3.5 mmol/L (3.5-5.0); Total Protein 6.5 g/dL (6.4-8.9)
[2020-12-17] MEDS ORDERED: cefTRIAXone 2 GM ADDV.VIAL 2 GM in NS 0.9% 100 ml BAG 100 ML IV SCH (21:00)
[2020-12-18] MEDS: metroNIDAZOLE IV 500 MG/100ML 500 MG/100 ML BAG IVPB SCH ×3 (05:13→22:37)
[2020-12-18 07:24] LABS: ABS Eosinophils 0.1 10^3/ul (0-0.6); ABS Lymphocytes 1.2 10^3/ul (1.0-4.8); ABS Monocytes 0.5 10^3/ul (0-0.8); ABS Neutrophils 6.9 10^3/ul (1.5-7.7); Eosinophil % 1.1 %; Hematocrit 27 % (35-47); Hemoglobin 9.4 g/dL (12.0-16.0); Lymphocyte % 13.7 %; Mean Corpuscular HGB Conc 34 g/dL (31-36); Mean Corpuscular Hemoglobin 30 pg (27-31); Mean Corpuscular Volume 87 fL (80-97); Mean Platelet Volume 7.5 fL (7.4-10.4); Platelet Count 138 10^3/uL (150-450); Red Blood Count 3.16 10^6 /uL (3.70-4.87); Red Cell Distribution Width 14 % (10-15); White Blood Count 8.7 10^3/uL (3.5-10.8)
[2020-12-18 07:40] LABS: Albumin 3.1 g/dL (3.2-5.2); BUN/Creatinine Ratio 15.1 (8-20); Calcium 8.9 mg/dL (8.6-10.3); EGFR African American 27.3 (>60); EGFR Non-African American 22.5 (>60); Potassium 3.2 mmol/L (3.5-5.0)
[2020-12-18 07:41] LABS: Albumin/Globulin Ratio 1.1 (1-3); Globulin 2.9 g/dL (2-4); Indirect Bilirubin 0.5 mg/dL (0.3-1.0); Total Bilirubin 0.7 mg/dL (0.2-1.0)
[2020-12-18] MEDS ORDERED: Rocuronium 50 mg VIAL 10 mg/ml 5 ml VIAL (50 mg) ONE (08:52)
[2020-12-18] MEDS ORDERED: fentaNYL 100 mcg/2 ml 50 MCG/ML VIAL ONE ×2 (08:52→10:45)
[2020-12-18] MEDS ORDERED: Phenylephrine 40 mcg/mL 10mL (400mcg) SYRINGE ONE (08:53)
[2020-12-18] MEDS ORDERED: Propofol 10 MG/ML 20 ML BTL ONE (08:53)
[2020-12-18] MEDS ORDERED: Ondansetron 4 mg VIAL 2 MG/ML 2 ml VIAL IV PRN (08:57)
[2020-12-18] MEDS ORDERED: HYDROmorphone 1 MG/1 ML SYRINGE IV PRN (08:57)
[2020-12-18] MEDS ORDERED: Naloxone 0.4 mg VIAL 0.4 mg/ml 1 ml VIAL IV PRN (08:57)
[2020-12-18] MEDS ORDERED: fentaNYL 100 mcg/2 ml 50 MCG/ML VIAL IV PRN (08:57)
[2020-12-18] MEDS ORDERED: cefTRIAXone 2 GM ADDV.VIAL ONE (09:00)
[2020-12-18] MEDS ORDERED: Indomethacin 50 mg SUPP (NF) PR ONE ×2 (09:00→09:23)
[2020-12-18] MEDS ORDERED: Influenza VAC *QUAD* 2020-21* 0.5 ML SYRINGE IM ONE (09:00)
[2020-12-18] MEDS ORDERED: Ondansetron 4 mg VIAL 2 MG/ML 2 ml VIAL ONE ×2 (09:44→10:45)
[2020-12-19] MEDS: metroNIDAZOLE IV 500 MG/100ML 500 MG/100 ML BAG IVPB SCH ×2 (05:17→12:49)
[2020-12-19 07:32] LABS: ABS Eosinophils 0.1 10^3/ul (0-0.6); ABS Monocytes 0.4 10^3/ul (0-0.8); ABS Neutrophils 4.4 10^3/ul (1.5-7.7); Hematocrit 27 % (35-47); Hemoglobin 9.3 g/dL (12.0-16.0); Mean Corpuscular HGB Conc 35 g/dL (31-36); Mean Corpuscular Hemoglobin 30 pg (27-31); Mean Corpuscular Volume 86 fL (80-97); Mean Platelet Volume 7.4 fL (7.4-10.4); Platelet Count 143 10^3/uL (150-450); Red Blood Count 3.14 10^6 /uL (3.70-4.87); Red Cell Distribution Width 14 % (10-15)
[2020-12-19 07:52] LABS: BUN/Creatinine Ratio 12.2 (8-20); Calcium 8.5 mg/dL (8.6-10.3); EGFR African American 32.7 (>60); Globulin 2.9 g/dL (2-4); Indirect Bilirubin 0.5 mg/dL (0.3-1.0); Potassium 3.3 mmol/L (3.5-5.0); Total Bilirubin 0.6 mg/dL (0.2-1.0); Total Protein 5.9 g/dL (6.4-8.9)
[2020-12-19] MEDS ORDERED: cefTRIAXone 2 GM ADDV.VIAL 2 GM in NS 0.9% 100 ml BAG 100 ML IV SCH (09:00)
[2020-12-19 14:58] VITALS: BP 124/57
== END 2020-12-19 17:04 | disposition home or self-care (01) | DRG 871 ==
LOC: ED 15:16 → MEDTELE 20:27
PROVIDERS: ADMIT Internal Medicine; ATTEND Internal Medicine

== ENCOUNTER 2021-02-19 15:59 | Inpatient (IN) ==
[2021-02-19 16:42] LABS: ABS Basophils 0.1 10^3/ul (0-0.2); ABS Lymphocytes 2.2 10^3/ul (1.0-4.8); ABS Monocytes 0.7 10^3/ul (0-0.8); ABS Neutrophils 6.6 10^3/ul (1.5-7.7); Eosinophil % 0.4 %; Hematocrit 42 % (35-47); Hemoglobin 14.2 g/dL (12.0-16.0); Mean Corpuscular HGB Conc 34 g/dL (31-36); Mean Corpuscular Hemoglobin 30 pg (27-31); Mean Corpuscular Volume 88 fL (80-97); Mean Platelet Volume 7.8 fL (7.4-10.4); Platelet Count 218 10^3/uL (150-450); Red Blood Count 4.77 10^6 /uL (3.70-4.87); Red Cell Distribution Width 14 % (10-15); White Blood Count 9.6 10^3/uL (3.5-10.8)
[2021-02-19 17:01] LABS: ALT 18 U/L (7-52); Albumin 3.6 g/dL (3.2-5.2); Alkaline Phosphatase 94 U/L (34-104); BUN/Creatinine Ratio 21.7 (8-20); Blood Urea Nitrogen 23 mg/dL (6-24); CO2 Carbon Dioxide 25 mmol/L (22-32); Calcium 10.9 mg/dL (8.6-10.3); Chloride 104 mmol/L (101-111); Creatine Kinase 37 U/L (10-223); EGFR African American 60.5 (>60); Globulin 3.5 g/dL (2-4); Glucose 96 mg/dL (70-100); Sodium 137 mmol/L (135-145); Total Protein 7.1 g/dL (6.4-8.9)
[2021-02-19 17:13] LABS: Urine Appearance Turbid; Urine Bilirubin Negative (Negative); Urine Blood 1+ (Negative); Urine Color Yellow; Urine Glucose Negative (Negative); Urine Ketones Negative (Negative); Urine Nitrite Positive (Negative); Urine Protein 1+(30 mg/dL) (Negative); Urine Specific Gravity 1.013 (1.002-1.030); Urine Urobilinogen Negative (Negative)
[2021-02-19 17:38] LABS: TSH Ultra Thyroid Stim Horm 0.73 mcIU/mL (0.34-5.60)
[2021-02-19 17:49] LABS: Urine Bacteria 1+ (Absent); Urine Red Blood Cell Trace(0-2/hpf) (Absent); Urine Transitional Epithelial Present (Absent); Urine White Blood Cell 3+(>20/hpf) (Absent)
[2021-02-19 17:50] LABS: Anion Gap 8 mmol/L (2-11)
[2021-02-19] MEDS ORDERED: cefTRIAXone 1 gm/50 mL NS BAG 1 GM/50 ML BAG IVPB ONE (17:58)
[2021-02-19 18:24] LABS: Potassium Redraw 4.3 mmol/L (3.5-5.0)
[2021-02-19] MEDS: Enoxaparin 40 MG/0.4 ML SYR SUBCUT SCH (21:57)
[2021-02-20 05:37] LABS: ABS Basophils 0.1 10^3/ul (0-0.2); ABS Eosinophils 0.2 10^3/ul (0-0.6); ABS Lymphocytes 2.5 10^3/ul (1.0-4.8); ABS Monocytes 0.8 10^3/ul (0-0.8); ABS Neutrophils 4.8 10^3/ul (1.5-7.7); Eosinophil % 1.9 %; Hematocrit 40 % (35-47); Hemoglobin 13.1 g/dL (12.0-16.0); Lymphocyte % 29.7 %; Mean Corpuscular HGB Conc 33 g/dL (31-36); Mean Corpuscular Hemoglobin 29 pg (27-31); Mean Corpuscular Volume 88 fL (80-97); Mean Platelet Volume 7.8 fL (7.4-10.4); Platelet Count 204 10^3/uL (150-450); Red Blood Count 4.48 10^6 /uL (3.70-4.87); Red Cell Distribution Width 14 % (10-15); White Blood Count 8.3 10^3/uL (3.5-10.8)
[2021-02-20 05:50] LABS: BUN/Creatinine Ratio 25.9 (8-20); Calcium 10.1 mg/dL (8.6-10.3); EGFR African American 59.2 (>60); EGFR Non-African American 48.9 (>60); Potassium 3.8 mmol/L (3.5-5.0)
[2021-02-20 14:04] LABS: Urine Appearance Cloudy; Urine Bilirubin Negative (Negative); Urine Blood 1+ (Negative); Urine Color Yellow; Urine Glucose Negative (Negative); Urine Ketones Negative (Negative); Urine Nitrite Negative (Negative); Urine Protein 1+(30 mg/dL) (Negative); Urine Specific Gravity 1.018 (1.002-1.030); Urine Urobilinogen Negative (Negative)
[2021-02-20 14:08] LABS: Urine Bacteria Absent (Absent); Urine Red Blood Cell 3+(>10/hpf) (Absent); Urine Squamous Epithelial Cell Present (Absent); Urine White Blood Cell 3+(>20/hpf) (Absent)
[2021-02-20] MEDS: cefTRIAXone 1 gm/50 mL NS BAG 1 GM/50 ML BAG IVPB SCH (18:01)
[2021-02-20] MEDS: Enoxaparin 40 MG/0.4 ML SYR SUBCUT SCH (20:10)
[2021-02-21] MEDS: cefTRIAXone 1 gm/50 mL NS BAG 1 GM/50 ML BAG IVPB SCH (18:29)
[2021-02-21] MEDS: Enoxaparin 40 MG/0.4 ML SYR SUBCUT SCH (20:53)
[2021-02-22] MEDS: cefTRIAXone 1 gm/50 mL NS BAG 1 GM/50 ML BAG IVPB SCH (18:12)
[2021-02-22] MEDS: Enoxaparin 40 MG/0.4 ML SYR SUBCUT SCH (20:07)
[2021-02-23] MEDS: Enoxaparin 40 MG/0.4 ML SYR SUBCUT SCH (19:46)
[2021-02-24 12:37] VITALS: BP 115/60
== END 2021-02-24 14:50 | DRG 700 ==
LOC: ED 15:59 → MED 20:12
PROVIDERS: ADMIT Internal Medicine; ATTEND Internal Medicine